=== PATIENT | male | born 1980 | race Caucasian/White ===

== ENCOUNTER → 2020-09-18 08:28 | Outpatient (REF) | payer OTHER, SELFPAY | LOC: ANHLAB 08:28 | PROVIDERS: PCP Internal Medicine; Visit Provider Nurse Practitioner | DX: D17.21 Benign lipomatous neoplasm of skin and subcutaneous tissue of right arm (principal) | CPT/HCPCS: 88304 ==

== ENCOUNTER → 2020-09-30 08:28 | Outpatient (REF) | payer OTHER, SELFPAY | LOC: ANHLAB 08:28 | PROVIDERS: PCP Internal Medicine; Visit Provider Nurse Practitioner | DX: R22.9 Localized swelling, mass and lump, unspecified (principal) | CPT/HCPCS: 88304 ==

== ENCOUNTER → 2020-10-20 16:03 | Outpatient (REF) | payer OTHER, SELFPAY | LOC: ANHLAB 16:03 | PROVIDERS: PCP Internal Medicine; Visit Provider Nurse Practitioner | DX: D17.1 Benign lipomatous neoplasm of skin and subcutaneous tissue of trunk (principal) | CPT/HCPCS: 88304 ==

== ENCOUNTER → 2020-12-18 08:37 | Outpatient (REF) | payer OTHER, SELFPAY | LOC: ANHLAB 08:37 | PROVIDERS: PCP Internal Medicine; Visit Provider Nurse Practitioner | DX: D17.24 Benign lipomatous neoplasm of skin and subcutaneous tissue of left leg (principal); D17.1 Benign lipomatous neoplasm of skin and subcutaneous tissue of trunk; D17.21 Benign lipomatous neoplasm of skin and subcutaneous tissue of right arm | CPT/HCPCS: 88304 ==

== ENCOUNTER 2022-12-01 14:10 | Observation (INO) | payer BC, SELFPAY ==
--- NOTE | ~2022-12-01 | XR_ITS ---
EXAMINATION: XR foot LT min 3V DATE: 12/01/2022 15:19 INDICATION: Left foot injury. Foreign body. TECHNIQUE: 4 views of left foot were obtained. COMPARISON: None. FINDINGS: Bone alignment is normal. No fracture. Joint spaces are normal. There is an enthesophyte at posterior aspect of calcaneal tuberosity. IMPRESSION: 1. No radiopaque foreign body. Reviewed, dictated and finalized at location A.
[2022-12-01 14:44] VITALS: BP 126/81; PULSE 105; RESP 18; TEMP 37.2; O2SAT 100
--- NOTE | 2022-12-01 15:21 | ED.GENADULT ---
HPI - General Adult General Chief complaint: Recheck/Abnormal Lab/Rx Stated complaint: low blood sugar and stepped on nails Time Seen by Provider: 12/01/22 14:55 History of Present Illness HPI narrative: 42-year-old male history of type 1 diabetes currently managed with Novolin R sliding scale and Novolin 70/30 presents to the emergency room for multiple complaints. Patient states yesterday he was completing a tim project, when he accidentally stepped on a nail. Nail punctured his shoe and led to a small puncture wound to the bottom of left foot. Patient also states that he has been dealing with labile blood sugars. Patient states that approximately every other day he experiences hypoglycemia with blood sugars less than 70. Patient states EMS was on scene at his house yesterday due to a blood sugar of 32. Patient was given oral glucagon and recovered Related Data Home Medications Medication Instructions Recorded Confirmed insulin regular human 100 unit/mL 1 sliding scale dose subcut TID 02/07/19 09/11/21 injection solution (Novolin R Regular U-100 Insulin) testosterone cypionate 100 mg/mL 100 mg IM WEEKLY 02/07/19 09/11/21 intramuscular oil (Depo-Testosterone) esomeprazole magnesium 20 mg 20 mg PO DAILY 05/22/21 09/11/21 capsule,delayed release (Nexium) anastrozole 1 mg tablet 1 mg PO .2Xweek 05/29/21 09/11/21 Allergies Allergy/AdvReac Type Severity Reaction Status Date / Time No Known Allergies Allergy Mild Verified 12/01/22 14:53 Review of Systems Review of Systems: CONSTITUTIONAL: Denies fever, chills, or sweats. EYES: Denies visual changes, redness, or discharge. ENT: Denies rhinorrhea, congestion, sore throat, or otalgia. CARDIOVASCULAR: Denies chest pain, palpitations, or edema. RESPIRATORY: Denies cough or dyspnea. GASTROINTESTINAL: Denies abdominal pain, nausea, vomiting, or diarrhea. GENITOURINARY: Denies dysuria or hematuria. SKIN: Denies rashes MUSCULOSKELETAL: Denies back pain, joint pain, or myalgia. NEUROLOGIC: Denies headache, numbness, dizziness, or weakness. PSYCHIATRIC: Denies anxiety or depression. FORMERLY [facility], [facility] Past Medical History Medical History Allergies Depression GERD (gastroesophageal reflux disease) Low testosterone Polycythemia Sleep apnea Transaminitis Type 1 diabetes Surgical History Surgical History H/O toe surgery 10 total surgeries Bunion and hammer toe surgery 2011 History of knee surgery Minuscus repair Family History Family History Father Family history of obesity Family history of cardiovascular disease Mother Family history of pancreatic disease Other Depression Family history of hepatitis Family history of mental disorder Social History Social History Alcohol intake: current Alcohol use details: Pt drinks 1 daily. Substance use: current Substance use type: marijuana Last use: smokes and uses edibles occasionally Exam Narrative: GENERAL: Well-appearing, well-nourished, no physical limitations, and in no acute distress. HEAD: Normocephalic, atraumatic. EYES: Conjunctivae normal, PERRLA and EOMI. CHEST: Clear to auscultation. No respiratory distress. No wheezes rales or rhonchi. HEART: Regular rate and rhythm. No murmur heard. Normal peripheral pulses. EXTREMITIES: Normal range of motion. No edema. No clubbing or cyanosis SKIN: Warm, dry, no rash. Left foot: NEURO: No focal deficits. Alert and oriented x3. MAEW. CN's II-XI intact bilaterally, normal gait PSYCH: Cooperative. Normal mood and affect. Course Vital Signs Vital signs: Vital Signs Temperature 37.2 C 12/01/22 14:44 Pulse Rate 105 H 12/01/22 14:44 Respiratory Rate 18 12/01/22 14:44 Blood Pressure 126/81 0
[2022-12-01 15:40] LABS: Basophils Percent Auto 0.2 % (0.2-1.2); Eosinophils Percent Auto 0.2 % (0-4.4); Hematocrit 57.4 % (42.0-52.0); Immature Granulocyte Absolute 0.02 K/mm3 (0.00-0.031); Immature Granulocyte Percent A 0.2 % (0-0.5); Lymphocytes Absolute Auto 0.78 K/mm3 (0.9-3.2); Lymphocytes Percent Auto 7.4 % (18.3-44.2); Mean Corpuscular HGB Conc 33.1 g/dl (32-36); Mean Corpuscular Hemoglobin 28.5 pg (26-34); Mean Corpuscular Volume 86.2 fl (80-100); Mean Platelet Volume 9.7 fl (7.4-10.4); Monocytes Absolute Auto 0.7 K/mm3 (0.1-0.6); Monocytes Percent Auto 6.6 % (2.6-8.5); Neutrophils Percent Auto 85.4 % (45.5-73.1); Platelet Count Result 250 k/mm3 (150-375); Red Blood Count 6.66 M/mm3 (4.6-6.20); Red Cell Distribution Width 14.7 % (11.5-14.5); White Blood Count 10.5 K/mm3 (4.5-10.0)
[2022-12-01 15:52] LABS: Alanine Aminotransferase 56 U/L (6-50); Albumin Level 4.8 g/dL (3.5-5.1); Alkaline Phosphatase 117 U/L (38-126); Anion Gap 12 mmol/L (8-16); Aspartate Amino Transferase 80 U/L (17-59); Bilirubin,Total 2.1 mg/dL (0.2-1.3); Blood Urea Nitrogen 14 mg/dL (9-20); Carbon Dioxide 22 mmol/L (22-30); Chloride 101 mmol/L (98-107); Estimated CRCL calculation 101 ml/min; Estimated Glomerular Filt Rate > 60; Glucose 193 mg/dL (65-110); Potassium 4.5 mmol/L (3.4-5.0); Sodium 135 mmol/L (137-145)
[2022-12-01] MEDS: SODIUM CHLORIDE 0.9% IV 1,000 ML 999 ML IV CONT (16:08)
[2022-12-01] MEDS: CIPROFLOXACIN 400 MG/D5W 200ML 200 ML 200 MG IVPB (16:10)
[2022-12-01 16:16] LABS: Beta-Hydroxybutyrate/Acetoacetate 1.79 mmol/L (0.02-0.27)
[2022-12-01 16:19] LABS: Hemoglobin A1C 7.3 % (<5.7)
[2022-12-01 16:48] VITALS: BP 132/81; PULSE 79; RESP 18; O2SAT 99
[2022-12-01 16:49] LABS: Appearance Urine Clear (Clear); Bilirubin Urine Negative (Negative); Blood Urine Negative (Negative); Color Urine Yellow (Yellow); Glucose Urine UA Negative (Negative); Ketones Urine 2+ mg/dL (Negative); Leukocyte Esterase Ur Negative LEU/UL (Negative); Nitrate Urine Negative (Negative); Protein Urine Negative (Negative); Specific Grav Ur 1.009 (1.001-1.035); Urobilinogen Urine 0.2 mg/dL (<2.0)
[2022-12-01 16:51] LABS: Add Urine Microscopic? NO
[2022-12-01 18:41] VITALS: BP 122/60; PULSE 78; RESP 14; TEMP 36.9; O2SAT 98
[2022-12-01 20:00] VITALS: BP 127/85; PULSE 64; RESP 13; TEMP 36.9; O2SAT 100
[2022-12-01 20:23] VITALS: BMI 32.1
[2022-12-01 23:50] VITALS: BP 123/68; PULSE 68; RESP 13; TEMP 36.8; O2SAT 97
--- NOTE | 2022-12-01 23:55 | PM.IMHP ---
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 Patient has PMH of DM1, abcess to buttock requiring I/D, HLD, TRESSA, and depression. per patient over the last 1-2 months, he has been experiencing hyperglycemia or hypoglycemia in the mornings. Most recent event on 12/01, patient woke and had seizure-like activity biting tongue. Girlfriend gave him glucose pills and peanut butter, recheck if sugar read 32. At EMS arrival he was given additional dextrose with complete resolution of hypoglycemia. Not currently using an insulin pump. monitors glucose levels 4-5 times per day. Initially reported to ED provider that he paces his insulin dose off of a sliding scale, however after arrival to inpatient treatment room he reported to the night RN that he typically gives himself on average 25 units of regular insulin per meal and does not use a sliding scale. last change to diabetic regimen was approximately 3 months ago. Patient had abscess to buttock (09/2022) requiring an increase in insulin amount, as well as surgical incision and drainage, and same DM regimen continued. Diabetes currently managed by PCP. patient reported poor diet to night RN and does not count carbs. currently A/Ox4. Review of Systems Review of Systems: All systems reviewed & are unremarkable except as noted in HPI and below PMFSH Past Medical History Medical History (Updated 12/02/22 @ 00:12 by Varsha Abraham APRN) Allergies Depression GERD (gastroesophageal reflux disease) HLD (hyperlipidemia) Low testosterone Polycythemia Sleep apnea Transaminitis Type 1 diabetes Surgical History Surgical History (Updated 12/02/22 @ 00:12 by Varsha Abraham APRN) History of knee surgery Meniscus Repair History of toe surgery 10 total surgeries due to Bunions and Hammer Toes, 2010 Family History Family History Father Family history of obesity Family history of cardiovascular disease Mother Family history of pancreatic disease Other Depression Family history of hepatitis Family history of mental disorder Social History Social History (Updated 12/02/22 @ 00:14 by Varsha Abraham APRN) Social History: Currently lives at home with girlfriend, Ashley as of 12/02/22. Smoking status: Current some day smoker Tobacco type: e-cigarettes/vaping Second hand tobacco smoke exposure: No Additional smoking assessment comments: Vaping for 3-4 years, no previous tobacco use. Alcohol intake: current Alcohol use details: Reports 1 shot of hard alcohol weekly. 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
[2022-12-02 04:00] VITALS: BP 122/71; PULSE 64; RESP 13; TEMP 36.9; O2SAT 98
[2022-12-02 05:54] LABS: Basophils Percent Auto 0.4 % (0.2-1.2); Eosinophils Absolute Auto 0.1 K/mm3 (0-0.3); Eosinophils Percent Auto 1.2 % (0-4.4); Hematocrit 53.8 % (42.0-52.0); Hemoglobin 17.8 g/dL (14.0-18.0); Immature Granulocyte Absolute 0.02 K/mm3 (0.00-0.031); Immature Granulocyte Percent A 0.3 % (0-0.5); Lymphocytes Absolute Auto 1.12 K/mm3 (0.9-3.2); Lymphocytes Percent Auto 14.8 % (18.3-44.2); Mean Corpuscular HGB Conc 33.1 g/dl (32-36); Mean Corpuscular Hemoglobin 29.2 pg (26-34); Mean Corpuscular Volume 88.2 fl (80-100); Mean Platelet Volume 9.6 fl (7.4-10.4); Monocytes Absolute Auto 0.6 K/mm3 (0.1-0.6); Monocytes Percent Auto 7.9 % (2.6-8.5); Neutrophils Absolute Auto 5.7 K/mm3 (1.3-6.7); Neutrophils Percent Auto 75.4 % (45.5-73.1); Platelet Count Result 215 k/mm3 (150-375); Red Cell Distribution Width 14.3 % (11.5-14.5); White Blood Count 7.6 K/mm3 (4.5-10.0)
[2022-12-02 06:08] LABS: Alanine Aminotransferase 45 U/L (6-50); Alkaline Phosphatase 96 U/L (38-126); Anion Gap 8 mmol/L (8-16); Aspartate Amino Transferase 67 U/L (17-59); Bilirubin,Total 2.6 mg/dL (0.2-1.3); Blood Urea Nitrogen 14 mg/dL (9-20); Calcium 8.6 mg/dL (8.4-10.2); Carbon Dioxide 25 mmol/L (22-30); Chloride 102 mmol/L (98-107); Estimated CRCL calculation 101 ml/min; Estimated Glomerular Filt Rate > 60; Glucose 181 mg/dL (65-110); Potassium 4.6 mmol/L (3.4-5.0); Sodium 135 mmol/L (137-145)
[2022-12-02] MEDS: TETANUS,DIPHTHERIA,AC PERTUSSIS ADULT (0.5 ML) BOOSTRIX IM (06:13)
[2022-12-02 08:00] VITALS: BP 127/88; PULSE 72; RESP 16; TEMP 36.7; O2SAT 98
[2022-12-02] MEDS: PANTOPRAZOLE 40 MG TABLET PO (08:29)
[2022-12-02] MEDS: SIMVASTATIN 20 MG TABLET PO (08:29)
[2022-12-02] MEDS: ENOXAPARIN 40 MG/0.4 ML SYRINGE SUB-Q (08:30)
[2022-12-02] MEDS: PARoxetine 20 MG TABLET 40 MG PO (08:30)
[2022-12-02] MEDS: levoFLOXacin 500 MG TABLET PO (08:30)
[2022-12-02] MEDS: ANASTROZOLE (*CHEMO) 1 MG TABLET PO (08:35)
[2022-12-02] MEDS: INSULIN ASPART (*BKC) 100 UNITS/ML SUB-Q ×2 (08:36→12:22)
--- NOTE | 2022-12-02 09:22 | PCCDE ---
Addendum entered by Fanny Stevenson, RD, LDN, CDE 12/02/22 14:39: also called and spoke to SIENNA George at approx 0915 Original Note: Phone message received this am about diabetes education consult. This DM specialist is at OP today. Reviewed chart. Pt has T1DM and only receiving high dose correction insulin. Unclear about home insulin doses. Recommend to use basal bolus with correction based on weight using insulin order set. Recommend approx 20 units Lantus daily, 6 units Novolog TID WM and medium correction dosing AC and HS. DM Specialist will see pt tomorrow for assessment and education.
[2022-12-02 12:30] LABS: Glucose Point of Care 375 mg/dl (65-105)
[2022-12-02 13:11] LABS: Glucose Point of Care 145 mg/dl (65-105)
[2022-12-02 13:11] LABS: Glucose Point of Care 236 mg/dl (65-105)
[2022-12-02 13:29] LABS: Glucose Point of Care 192 mg/dl (65-105)
[2022-12-02 13:30] LABS: Glucose Point of Care 235 mg/dl (65-105)
[2022-12-02 13:30] LABS: Glucose Point of Care 196 mg/dl (65-105)
[2022-12-02 15:08] LABS: Glucose Point of Care 334 mg/dl (65-105)
[2022-12-02 15:18] VITALS: BP 135/86; PULSE 71; RESP 18; TEMP 36.4; O2SAT 96
[2022-12-02] MEDS: INSULIN ASPART (*BKC) 100 UNITS/ML 10 UNITS SUB-Q (15:20)
--- NOTE | 2022-12-02 15:33 | PM.DS ---
DS: Admitting Diagnosis Discharge Date 12/02/22 Admitting Diagnosis hypoglycemia DS: Discharge Diagnosis Discharge Diagnosis (1) Puncture wound of plantar aspect of left foot: Code(s): S91.332A - Puncture wound without foreign body, left foot, initial encounter Status: Acute (2) Diabetes: Qualifiers: Diabetes mellitus complication status: with hypoglycemia Diabetes mellitus type: type 1 Code(s): E11.9 - Type 2 diabetes mellitus without complications Status: Acute (3) Hypoglycemia: Code(s): E16.2 - Hypoglycemia, unspecified Status: Acute DS: Summary Hospital Course Hospital Course: 42M w/ PMH type 1 DM presented as he woke up with seizure like activity and hypoglycemia. He was treated with dextrose, then consistently demonstrated high blood sugar values. Diabetic teaching has consulted and gave recommendations on more tightly controlling his BS. He will be discharged on lantus 20 units/ day along with bolus dosing novolog 6 units TID and then sliding scale. I educated him as well, as he was taking 25 units TID previously. He will follow up with PCP and it is recommended he continue with diabetic teaching or endocrine. He received a TDAP as he recently stepped on a nail, although the puncture wound does not appear infected. He received one dose of levofloxacin. Discharge to home in stable condition. Time Spent with Patient Time attestation: Total time spent providing and/or coordinating discharge services: Exam Const: General: no acute distress Resp: Effort & Inspection: normal respiratory effort Auscultation: clear to auscultation bilaterally Cardio: Rate: regular rate Rhythm: regular rhythm Heart sounds: S1 normal heart sound present and S2 normal heart sound present GI: GI Palp: No abdominal tenderness Auscultation: normal bowel sounds DS: Data Data Completed and Pending Labs on day of discharge: Labs from last 24 hours 12/02/22 12/02/22 12/02/22 15:05 12:19 08:25 WBC RBC Hgb Hct MCV MCH MCHC RDW Plt Count MPV Immature Gran % (Auto) Neut % (Auto) Lymph % (Auto) Hettinger % (Auto) Eos % (Auto) Baso % (Auto) Lymph # (Auto) Hettinger # (Auto) Eos # (Auto) Baso # (Auto) Abs Immat Gran (auto) Absolute Neuts (auto) Absolute Nucleated RBC Nucleated RBC % Sodium Potassium Chloride Carbon Dioxide Anion Gap BUN Creatinine Estim Creat Clear Calc Estimated GFR Glucose POC Capillary Glucose 334 H 375 H 236 H Hemoglobin A1c Calcium Total Bilirubin AST ALT Alkaline Phosphatase Total Protein Albumin Beta-Hydroxybutyrate/Acetoacetate Urine Color Urine Appearance Urine pH Ur Specific Woodruff Urine Protein Urine Glucose (UA) Urine Ketones Ur Blood (Man) Urine Nitrate Urine Bilirubin Urine Urobilinogen Leukocyte Esterase Rfl 12/02/22 12/02/22 12/01/22 05:48 03:53 19:43 WBC 7.6 RBC 6.10 Hgb 17.8 Hct 53.8 H MCV 88.2 MCH 29.2 MCHC 33.1 RDW 14.3 Plt Count 215 MPV 9.6 Immature Gran % (Auto) 0.3 Neut % (Auto) 75.4 H Lymph % (Auto) 14.8 L Hettinger % (Auto) 7.9 Eos % (Auto) 1.2 Baso % (Auto) 0.4 Lymph # (Auto) 1.12 Hettinger # (Auto) 0.6 Eos # (Auto) 0.1 Baso # (Auto) 0.0 Abs Immat Gran (auto) 0.02 Absolute Neuts (auto) 5.7 Absolute Nucleated RBC 0.0 Nucleated RBC % 0.0 Sodium 135 L Potassium 4.6 Chloride 102 Carbon Dioxide 25 Anion Gap 8 BUN 14 Creatinine 1.00 Estim Creat Clear Calc 101 Estimated GFR > 60 Glucose 181 H POC Capillary Glucose 145 H 192 H Hemoglobin A1c Calcium 8.6 Total Bilirubin 2.6 H AST 67 H ALT 45 Alkaline Phosphatase 96 Total Protein 7.0 Albumin 4.0 Beta-Hydroxybutyrate/Acetoacetate Urine Color Urine Appearance Ur
[2022-12-02 16:21] LABS: Glucose Point of Care 249 mg/dl (65-105)
--- NOTE | 2022-12-03 16:21 | PCCDE ---
Pt was discharged yesterday before consult was completed. Called pt at home today; he reports to be taking Lantus and Humalog as ordered but is taking Regular insulin after meals. He reports BG is running 300. Advised sliding scale is given before meals. He sts he is looking to use insulin pump/ CGM. He currently sees PCP for DM management. Provided contact info on [facility] and encouraged to make appointment. Pt has PCP appt on 12/13. Instructed pt to request referral for DSMT, MNT and orders for CGM. Reviewed tx of mild/mod and severe hypoglycemia-pt needs rx for glucagon (Gvoke vs Baqsimi)-pt to ask PCP Reviewed DKA sx, when to check ketones and when to seek medical help. He has ketone strips at home-pt to check expiration. Pt has DM Specialist contact info; encouraged to call prn. We will call to scheduled DSMT/MNT once we receive orders.
== END 2022-12-02 16:35 | disposition home or self-care (01) ==
LOC: ANHED 16:48 → ANH3MED 21:05 → ANH2MED 12-03 07:53 → ANH3MED 12-03 07:53
PROVIDERS: Admitting Provider Internal Medicine; Emergency Provider Nurse Practitioner Family; PCP Internal Medicine; Visit Provider General Practice
DX: S91.332A Puncture wound without foreign body, left foot, initial encounter (principal); W45.0XXA Nail entering through skin, initial encounter; Z23 Encounter for immunization; E10.649 Type 1 diabetes mellitus with hypoglycemia without coma; F32.A Depression, unspecified; K21.9 Gastro-esophageal reflux disease without esophagitis; E29.1 Testicular hypofunction; D75.1 Secondary polycythemia; G47.30 Sleep apnea, unspecified; R74.01 Elevation of levels of liver transaminase levels; F10.90 Alcohol use, unspecified, uncomplicated; F12.90 Cannabis use, unspecified, uncomplicated; Z79.4 Long term (current) use of insulin; Z79.899 Other long term (current) drug therapy
CPT/HCPCS: 36415; 73630; 80053; 81003; 82010; 82948; 83036; 85025; 90471; 90715; 96365; 96372; 99285; A9270; G0378; J0744; J1650; J1815; J7030

== ENCOUNTER 2023-04-14 08:00 | Outpatient (RCR) | payer BC, SELFPAY ==
[2023-02-17 08:11] VITALS: BMI 31.1
[2023-02-17 08:59] VITALS: BMI 31.1
== END 2023-05-16 09:54 | disposition home or self-care (01) ==
LOC: ANHDMC 08:00
PROVIDERS: PCP Internal Medicine; Visit Provider Nurse Practitioner Family
DX: E10.649 Type 1 diabetes mellitus with hypoglycemia without coma (principal); Z71.89 Other specified counseling; Z71.3 Dietary counseling and surveillance
CPT/HCPCS: 97802; G0108

== ENCOUNTER 2023-09-05 08:51 | Outpatient (CLI) | payer BC, SELFPAY ==
--- NOTE | 2023-09-27 15:12 | WPDHOMESLEEP ---
Sleep Study - Home Unattended Date of Study: 09/05/23 Ordering Provider: Cindy Blackwell DO Interpreting Provider: Cindy Blackwell DO Home Sleep Study Type: Watch PAT Height: 1.78 m Weight: 87.997 kg Body Mass Index: 27.8 Neck Circumference (inches): 15.25 Plain: 15 Reason for Sleep Study His CPAP broke a few months ago. Needs new equipment. Sleep History Sleep intake forms was unavailable. Please see sleep medicine office note from 08/25/2023 for sleep history. REPLACED BY [facility] Past Medical History Medical History Allergies Chronic fatigue Depression GERD (gastroesophageal reflux disease) HLD (hyperlipidemia) Lesion of lip Low testosterone Low testosterone Penile lesion Polycythemia Positive RPR test Sleep apnea Syphilis Transaminitis Type 1 diabetes Surgical History Surgical History History of knee surgery Meniscus Repair History of toe surgery 10 total surgeries due to Bunions and Hammer Toes, 2010 Family History Family History Father Family history of obesity Family history of cardiovascular disease Mother Family history of pancreatic disease Other Depression Family history of hepatitis Family history of mental disorder Social History Social History Social History: Currently lives at home with girlfriend, Ashley as of 12/02/22. Smoking status: Current some day smoker Tobacco type: e-cigarettes/vaping Second hand tobacco smoke exposure: No Additional smoking assessment comments: Vaping for 3-4 years, no previous tobacco use. Alcohol intake: current Alcohol use details: Reports 1 shot of hard alcohol weekly. 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 Spiritual care concerns: No Medications Home Medications Medication Instructions Recorded Confirmed Type testosterone cypionate 100 mg/mL 100 mg IM WEEKLY 02/07/19 09/13/23 History intramuscular oil (Depo-Testosterone) esomeprazole magnesium 20 mg 20 mg PO DAILY 05/22/21 09/13/23 History capsule,delayed release (Nexium) anastrozole 1 mg tablet 1 mg PO .2Xweek 05/29/21 09/13/23 History cyclobenzaprine 10 mg tablet 10 mg PO TID PRN muscle spasm #20 09/11/21 09/13/23 Rx tabs blood sugar diagnostic (Pocket Changeuch #100 ea 02/01/23 09/13/23 Rx Ultra Test strips) blood-glucose meter,continuous #1 ea 02/01/23 09/13/23 Rx (Dexcom G6 Supervisor In [employer] Testing) blood-glucose sensor (Dexcom G6 #3 ea 02/01/23 09/13/23 Rx Sensor device) glucagon 3 mg/actuation nasal spray 3 mg intranasal ONCE #2 ea 02/01/23 09/13/23 Rx insulin pump cart,automated,BT #45 ea 02/01/23 09/13/23 Rx (Omnipod 5 G6 Pods (Gen 5) subcutaneous cartridge) insulin pump cartridge,automated #1 ea 02/01/23 09/13/23 Rx dose,BT with controller subcutaneous (Omnipod 5 G6 Intro Kit (Gen 5) subcutaneous cartridge with controller) lancets 33 gauge (NingTouch Delkostas #100 ea 02/01/23 09/13/23 Rx Plus Lancet) urine glucose-ketones test #50 ea 02/01/23 09/13/23 Rx insulin aspart U-100 100 unit/mL 6 unit (0.06 mL) subcut TID #30 mL 02/17/23 09/13/23 Rx (3 mL) subcutaneous pen (Novolog FlexPen U-1
[2023-09-27 15:13] VITALS: BMI 27.8
== END 2023-09-09 09:20 | disposition home or self-care (01) ==
LOC: ANHCSM 08:52
PROVIDERS: PCP Internal Medicine; Visit Provider Family Medicine
DX: G47.33 Obstructive sleep apnea (adult) (pediatric) (principal); K21.9 Gastro-esophageal reflux disease without esophagitis; E78.5 Hyperlipidemia, unspecified; E10.9 Type 1 diabetes mellitus without complications; F17.290 Nicotine dependence, other tobacco product, uncomplicated
CPT/HCPCS: 95800